=== PATIENT | female | born 1940 | race Caucasian/White ===

== ENCOUNTER 2018-08-09 13:00 | Inpatient (IN) | payer OTHER ==
[~2018-08-09] VITALS: Ht 160 cm; Wt 75.3 kg
[~2018-08-09 13:00] MED LIST: ADVIL200 MG PO; BENICAR; BRINTELLIX10 MG PO; BYSTOLIC10 M1 PO; DEXILANT60 M1 PO; FENOFIBRATE145 M1 PO; HUMALIN; JANUVIA100 M1 PO; LORAZEPAM2 MG PO; METFORMIN HCL1000 MG PO; MOR2I IV; NEU300 PO; NITRO-DUR0.2 MG/HR TD; PROAIR HFA8.5 GM INH; RESTORIL30 MG PO
[2018-08-09 13:06] VITALS: Ht 160 cm; Wt 75.3 kg
[2018-08-09 13:40] LABS: BASOPHIL % 0.7 % (0-2); PLATELET COUNT 343 x10^3mcL (130-400)
[2018-08-09 13:48] LABS: CALCIUM 8.8 mg/dL (8.5-10.1); CARBON DIOXIDE 20.7 mmol/L (21-32); CHLORIDE SERUM 101 mmol/L (98-107); CREATININE SERUM 1.1 mg/dL (0.6-1.0); GLUCOSE SERUM 204 mg/dL (74-106); POTASSIUM SERUM 4.4 mmol/L (3.5-5.1); SODIUM SERUM 131 mmol/L (136-145)
[2018-08-09 13:53] LABS: ALKALINE PHOSPHATASE 82 U/L (46-116); ALT/SGPT 16 U/L (14-59); AST/SGOT 11 U/L (15-37); BILIRUBIN TOTAL 0.7 mg/dL (0.20-1.00); TOTAL PROTEIN, SERUM 7.4 g/dL (6.4-8.2)
[2018-08-09 13:54] LABS: ALBUMIN 3.1 g/dL (3.4-5.0)
[2018-08-09 15:53] LABS: MAGNESIUM 1.9 mg/dL (1.8-2.4)
[2018-08-09 15:58] LABS: microscopic required? YES; urine erythrocyte NEGATIVE (NEGATIVE)
[2018-08-09 16:00] LABS: CHOLESTEROL/HDL RATIO 2.5
[2018-08-09 16:02] LABS: AMPHETAMINE QUAL UR NONE DETECTED (See below)
[2018-08-09 16:03] LABS: FREE T4 1.49 ng/dL (0.76-1.46); FREE THYROXINE INDEX 3.7 ug/dL (1.4-4.5); T4(THYROXINE) 10.2 ug/dL (4.7-13.3)
[2018-08-09] MEDS ORDERED: ATIVAN1 MG PO (16:05)
[2018-08-09] MEDS ORDERED: LASIX20 MG PO (16:06)
[2018-08-09] MEDS ORDERED: HYDRALAZINE HY100 MG PO (16:06)
[2018-08-09] MEDS ORDERED: NOR10 PO (16:06)
[2018-08-09] MEDS ORDERED: LOSARTAN POTASS1 TA8 PO (16:07)
[2018-08-09] MEDS ORDERED: GLYBURIDE AND M1 TA2 PO (16:07)
[2018-08-09] MEDS ORDERED: LIPI20 PO (16:07)
[2018-08-09] MEDS ORDERED: SINGULAIR10 MG PO (16:08)
[2018-08-09] MEDS ORDERED: ASPIR 8181 MG PO (16:08)
[2018-08-09] MEDS ORDERED: TRINTELLIX10 MG PO (16:08)
[2018-08-09] MEDS ORDERED: REQUIP0.5 MG PO (16:08)
[2018-08-09] MEDS ORDERED: PREDNISONE (16:09)
[2018-08-09] MEDS ORDERED: NOVOLIN 70/3010 ML SQ (16:10)
[2018-08-09] MEDS ORDERED: MELOXICAM7.5 M1 PO (16:10)
[2018-08-09 16:36] VITALS: BP 157/65
[2018-08-09 17:15] LABS: T3 TOTAL 1.04 ng/mL
[2018-08-09 19:30] VITALS: BP 166/66
[2018-08-10] VITALS (7 sets, daily range): BP systolic 127–175; BP diastolic 50–63
[2018-08-10 07:13] LABS: CALCIUM 8.2 mg/dL (8.5-10.1); CARBON DIOXIDE 24.4 mmol/L (21-32); CHLORIDE SERUM 104 mmol/L (98-107); CREATININE SERUM 1.3 mg/dL (0.6-1.0); GLUCOSE SERUM 179 mg/dL (74-106); POTASSIUM SERUM 4.1 mmol/L (3.5-5.1); SODIUM SERUM 140 mmol/L (136-145)
[2018-08-10 07:46] LABS: BASOPHIL % 0.4 % (0-2); PLATELET COUNT 306 x10^3mcL (130-400)
[2018-08-10 07:47] LABS: RED CELL DISTRIBUTION WIDTH 18.2 % (11.5-14.5)
[2018-08-11 05:31] VITALS: BP 173/61
[2018-08-11 07:27] LABS: CALCIUM 9.4 mg/dL (8.5-10.1); CARBON DIOXIDE 26.4 mmol/L (21-32); CHLORIDE SERUM 103 mmol/L (98-107); CREATININE SERUM 1.3 mg/dL (0.6-1.0); GLUCOSE SERUM 90 mg/dL (74-106); POTASSIUM SERUM 3.9 mmol/L (3.5-5.1); SODIUM SERUM 139 mmol/L (136-145)
[2018-08-11 07:31] LABS: BASOPHIL % 0.7 % (0-2); PLATELET COUNT 334 x10^3mcL (130-400)
[2018-08-11 07:45] LABS: RED CELL DISTRIBUTION WIDTH 17.1 % (11.5-14.5)
[2018-08-11 10:07] VITALS: BP 161/48
[2018-08-11 13:03] VITALS: BP 143/51
[2018-08-11 17:09] VITALS: BP 148/51
[2018-08-11 20:59] VITALS: BP 124/49
[2018-08-12] VITALS (8 sets, daily range): BP systolic 136–165; BP diastolic 50–54
[2018-08-12 06:50] LABS: CALCIUM 8.6 mg/dL (8.5-10.1); CARBON DIOXIDE 28.2 mmol/L (21-32); CHLORIDE SERUM 104 mmol/L (98-107); CREATININE SERUM 1.3 mg/dL (0.6-1.0); GLUCOSE SERUM 121 mg/dL (74-106); POTASSIUM SERUM 4.3 mmol/L (3.5-5.1); SODIUM SERUM 138 mmol/L (136-145)
[2018-08-12 08:52] LABS: PLATELET COUNT 302 x10^3mcL (130-400)
[2018-08-12 08:53] LABS: RED CELL DISTRIBUTION WIDTH 18.1 % (11.5-14.5)
[2018-08-12] MEDS ORDERED: LASIX20 MG PO (17:35)
[2018-08-12] MEDS ORDERED: KLOR-CON M1010 MEQ PO (17:36)
[2018-08-12] MEDS ORDERED: ALDACTONE25 MG PO (17:37)
== END 2018-08-12 22:35 | disposition home or self-care (01) | DRG 291 ==
LOC: ED 13:00 → EDBD 14:48 → DU 14:48
PROVIDERS: Emergency Medicine; Family Medicine
DX: I50.43 Acute on chronic combined systolic (congestive) and diastolic (congestive) heart failure (principal); J96.01 Acute respiratory failure with hypoxia; N17.0 Acute kidney failure with tubular necrosis; I13.0 Hypertensive heart and chronic kidney disease with heart failure and stage 1 through stage 4 chronic kidney disease, or unspecified chronic kidney disease; E44.0 Moderate protein-calorie malnutrition; D68.69 Other thrombophilia; E66.2 Morbid (severe) obesity with alveolar hypoventilation; N18.3 Chronic kidney disease, stage 3 (moderate); E11.22 Type 2 diabetes mellitus with diabetic chronic kidney disease; I44.1 Atrioventricular block, second degree; J44.9 Chronic obstructive pulmonary disease, unspecified; I25.10 Atherosclerotic heart disease of native coronary artery without angina pectoris; F32.9 Major depressive disorder, single episode, unspecified; R80.9 Proteinuria, unspecified; I25.2 Old myocardial infarction; Z79.4 Long term (current) use of insulin; Z68.30 Body mass index [BMI] 30.0-30.9, adult; Z95.1 Presence of aortocoronary bypass graft; Z79.84 Long term (current) use of oral hypoglycemic drugs; Z77.22 Contact with and (suspected) exposure to environmental tobacco smoke (acute) (chronic)
CPT/HCPCS: 82962; 83880; 84439; J1644; J1940; J2543; J3490; J7030; J7620; Q0092